=== PATIENT | male | born 1965 | race Caucasian/White ===

== ENCOUNTER 2017-05-15 17:56 | Inpatient (IN) | payer MEDICARE, OTHER ==
[~2017-05-15] VITALS: Ht 165.1 cm; Wt 69.7 kg
[~2017-05-15 17:56] MED LIST: GLYB5 PO; HYDR25TA PO; METO50 PO; NIFE10 PO
[2017-05-15] MEDS ORDERED: ALBUTEROL SULFATE 2.5 MG/0.5 ML NEB SOLUTION NEB ONE ×2 (18:10→19:20)
[2017-05-15] MEDS ORDERED: ACETAMINOPHEN 325 MG TABLET PO ONE (18:15)
[2017-05-15 18:29] LABS: BASOPHILS % (AUTO) 0.8 % (0.0-2.0); EOSINOPHILS % (AUTO) 3.6 % (1.0-6.0); HEMATOCRIT 34.2 % (41-53); HEMOGLOBIN 11.4 g/dL (13.5-17.5); LYMPHOCYTES # (AUTO) 0.7 K/uL (1.0-4.8); LYMPHOCYTES % (AUTO) 8.4 % (22.0-44.0); MEAN CORPUSCULAR HEMOGLOBIN 32.7 pg (26.0-34.0); MEAN CORPUSCULAR HGB CONC 33.3 G/dL (31.0-37.0); MEAN CORPUSCULAR VOLUME 98 fL (80-100); MONOCYTES # (AUTO) 0.2 K/uL (0.1-1.0); MONOCYTES % (AUTO) 2.7 % (2.0-9.0); NEUTROPHILS % (AUTO) 84.5 % (40.0-70.0); RED BLOOD CELL COUNT(AUTO) 3.48 MIL/uL (4.50-5.90); RED CELL DISTRIBUTION WIDTH 21.3 % (11.5-14.5)
[2017-05-15 18:36] LABS: INR 1.1 (0.9-1.1); PROTHROMBIN TIME 11.3 SEC (9.4-11.6)
[2017-05-15] MEDS ORDERED: CloNIDine HCL 0.2 MG TABLET PO ONE (18:45)
[2017-05-15 18:57] LABS: B-TYPE NATRIURETIC PEPTIDE > 5000 pg/mL (0-100)
[2017-05-15 19:01] LABS: SODIUM SERUM 136 mmol/L (136-145)
[2017-05-15 19:02] LABS: ANION GAP 21 mmol/L (8-16); CARBON DIOXIDE 19 mmol/L (22-29); CHLORIDE 96 mmol/L (98-107); GLUCOSE,RANDOM 122 mg/dL (70-110)
[2017-05-15 19:03] LABS: ALANINE AMINOTRANSFERASE 620 U/L (12-78); ALKALINE PHOSPHATASE 168 U/L (46-116); ASPARTATE AMINOTRANSFERASE 106 U/L (15-37); BILIRUBIN,TOTAL 1.7 mg/dL (0.1-1.0); CALCIUM, TOTAL 7.8 mg/dL (8.8-10.5); CREATINE KINASE, TOTAL 531 U/L (39-308); CREATININE 16.82 mg/dL (0.60-1.30); GLOMERULAR FILTR. RATE CALC 3 mL/min (>60); UREA NITROGEN, BLOOD 107 mg/dL (7-18)
[2017-05-15 19:05] LABS: ALBUMIN 3.4 g/dL (3.4-5.0); TOTAL PROTEIN, SERUM 7.7 g/dL (6.4-8.2)
[2017-05-15 19:12] LABS: CKMB RELATIVE INDEX 2.1 % (0.0-4.0); CREATINE KINASE MB 11.2 ng/mL (0-5)
[2017-05-15] MEDS ORDERED: CALCIUM GLUCONATE 100 MG/ML 10 ML IVP ONE (19:15)
[2017-05-15 19:28] LABS: PLATELET COUNT (AUTO) 71 K/uL (150-450)
[2017-05-15] MEDS ORDERED: SODIUM POLYSTYRENE SULFONATE 15 GM/60 ML SUSPENSION BOTTLE PO ONE (19:30)
[2017-05-15] MEDS ORDERED: 0.9% SODIUM CHLORIDE 5 ML NEB SOLUTION NEB ONE ×2 (19:33→19:34)
[2017-05-15 19:53] LABS: INFLUENZA TYPE A NEGATIVE FOR TYPE A (NEGATIVE); INFLUENZA TYPE B NEGATIVE FOR TYPE B (NEGATIVE)
[2017-05-15] MEDS ORDERED: OSELTAMIVIR PHOSPHATE 75 MG CAPSULE PO ONE (20:00)
[2017-05-15 20:06] LABS: ABG A-A DIFF O2 190.4 mmHg (10-20.0); ABG BASE EXCESS -9.4 mmol/L (-2.0-3.0); ABG CARBOXYHEMOGLOBIN 2.3 % (0.0-1.5); ABG HCO3 17.7 mmol/L (22.0-26.0); ABG METHEMOGLOBIN 0.3 % (0.0-1.5); ABG OXYGEN CONTENT 13.7 mL/dL (15.0-23.0); ABG OXYGEN SATURATION 88.8 % (95.0-98.0); ABG OXYHEMOGLOBIN 86.5 % (94.0-100.0); ABG PCO2 29 mmHg (35-45); ABG PH 7.364 (7.35-7.450); ABG TOTAL HEMOGLOBIN 11.2 G/dL (12.0-18.0); PO2, ARTERIAL BG 61.9 mmHg (84.0-92.0); SOURCE, BLOOD GAS ARTERIAL; TEMPERATURE, FAHRENHEIT, BG 98.6 FAHREN (96.0-98.6)
[2017-05-15 20:07] LABS: O2 DEVICE,BLOOD GAS AEROSOL MASK (ROOM AIR); SITE, BLOOD GAS LFT RADIAL
[2017-05-15] MEDS ORDERED: LEVOFLOXACIN 500 MG/D5% WATER 100 ML IV ONE (20:15)
[2017-05-15] MEDS ORDERED: ONDANSETRON HCL 4 MG/2 ML VIAL IVP PRN (20:30)
[2017-05-15] MEDS ORDERED: 0.9% SODIUM CHLORIDE 10 ML SYRINGE IVP PRN (20:30)
[2017-05-15] MEDS ORDERED: ACETAMINOPHEN 325 MG TABLET PO PRN (20:30)
[2017-05-15 21:59] VITALS: BP 160/109
[2017-05-15] MEDS ORDERED: ALBUTEROL SULFATE 2.5 MG/0.5 ML NEB SOLUTION NEB PRN (22:30)
[2017-05-15] MEDS ORDERED: VANCOMYCIN HCL 1 GM/D5% WATER 200 ML IV SCH (22:30)
[2017-05-15] MEDS ORDERED: *CLINICAL-CEFEPIME DOSING CLINICAL ONE (22:30)
[2017-05-15] MEDS ORDERED: CEFEPIME HCL 1 GM in DEXTROSE 5%-WATER 50 ML IV SCH (22:30)
[2017-05-15] MEDS ORDERED: IPRATROPIUM BROMIDE 0.5 MG/2.5 ML NEB SOLUTION NEB PRN (22:30)
[2017-05-15] MEDS ORDERED: VANCOMYCIN HCL 1 GM/D5% WATER 200 ML IV PRN (23:00)
[2017-05-15 23:29] LABS: C-REACTIVE PROTEIN QUANT 0.89 mg/dL (0.00-0.30)
[2017-05-15] MEDS ORDERED: VANCOMYCIN HCL 1.5 GM in DEXTROSE 5%-WATER 250 ML IV ONE (23:30)
[2017-05-15 23:46] LABS: ERYTHROCYTE SEDIMENTATION RATE 43 MM/HR (0-15)
[2017-05-16] VITALS (7 sets, daily range): BP systolic 104–157; BP diastolic 60–95
[2017-05-16] MEDS ORDERED: CEFEPIME HCL 1 GM in DEXTROSE 5%-WATER 50 ML IV ONE ×2
[2017-05-16] MEDS ORDERED: IPRATROPIUM BROMIDE 0.5 MG/2.5 ML NEB SOLUTION NEB SCH (02:00)
[2017-05-16] MEDS ORDERED: ALBUTEROL SULFATE 2.5 MG/0.5 ML NEB SOLUTION NEB SCH (02:00)
[2017-05-16 06:29] LABS: EOSINOPHILS % (AUTO) 0.1 % (1.0-6.0); HEMATOCRIT 28.8 % (41-53); HEMOGLOBIN 9.8 g/dL (13.5-17.5); LYMPHOCYTES # (AUTO) 0.7 K/uL (1.0-4.8); LYMPHOCYTES % (AUTO) 6.2 % (22.0-44.0); MEAN CORPUSCULAR HEMOGLOBIN 33.5 pg (26.0-34.0); MEAN CORPUSCULAR VOLUME 99 fL (80-100); MONOCYTES # (AUTO) 0.7 K/uL (0.1-1.0); MONOCYTES % (AUTO) 6.5 % (2.0-9.0); NEUTROPHILS # (AUTO) 10.1 K/uL (1.8-7.7); PLATELET COUNT (AUTO) 58 K/uL (150-450); RED BLOOD CELL COUNT(AUTO) 2.92 MIL/uL (4.50-5.90); RED CELL DISTRIBUTION WIDTH 20.5 % (11.5-14.5)
[2017-05-16 06:39] LABS: NEUTROPHILS % (AUTO) 87.2 % (40.0-70.0)
[2017-05-16 06:57] LABS: ALBUMIN 2.8 g/dL (3.4-5.0); BILIRUBIN,TOTAL 1.6 mg/dL (0.1-1.0); CALCIUM, TOTAL 7.2 mg/dL (8.8-10.5); CREATININE 17.51 mg/dL (0.60-1.30); TOTAL PROTEIN, SERUM 6.7 g/dL (6.4-8.2)
[2017-05-16] MEDS ORDERED: SODIUM CHLORIDE 0.9% 1,000 ML IV ONE ×2 (12:56)
[2017-05-16] MEDS: HEPARIN SODIUM,PORCINE 5,000 UNITS/ML VIAL SQ SCH ×2 (16:26→20:02)
[2017-05-16] MEDS: EPOETIN ALFA 10,000 UNITS/ML 2 ML VIAL SQ SCH (16:27)
[2017-05-16] MEDS: VITAMIN B COMP/VIT C/FOLIC ACID CAPSULE PO SCH (16:27)
[2017-05-16] MEDS: FAMOTIDINE 20 MG TABLET PO SCH (16:27)
[2017-05-16] MEDS: SODIUM POLYSTYRENE SULFONATE 15 GM/60 ML SUSPENSION BOTTLE PO SCH ×3 (16:28→20:05)
[2017-05-16] MEDS: CINACALCET HCL 30 MG TABLET PO SCH (18:49)
[2017-05-16] MEDS: ZOLPIDEM TARTRATE 5 MG TABLET PO PRN (21:27)
[2017-05-16] MEDS: CEFEPIME HCL 0.5 GM in DEXTROSE 5%-WATER 50 ML IV SCH (23:08)
[2017-05-16] MEDS ORDERED: SODIUM CHLORIDE 0.9% 500 ML IV ONE (23:09)
[2017-05-17] MEDS: VALSARTAN 160 MG TABLET PO SCH ×3 (01:09→21:15)
[2017-05-17 04:32] VITALS: BP 121/58
[2017-05-17] MEDS ORDERED: ACETAMINOPHEN 325 MG TABLET PO ONE (05:39)
[2017-05-17 07:25] VITALS: BP 106/55
[2017-05-17] MEDS: FAMOTIDINE 20 MG TABLET PO SCH (08:02)
[2017-05-17] MEDS: HEPARIN SODIUM,PORCINE 5,000 UNITS/ML VIAL SQ SCH ×2 (08:02→21:15)
[2017-05-17] MEDS: VITAMIN B COMP/VIT C/FOLIC ACID CAPSULE PO SCH (08:02)
[2017-05-17] MEDS: SODIUM POLYSTYRENE SULFONATE 15 GM/60 ML SUSPENSION BOTTLE PO SCH ×2 (08:03→21:00)
[2017-05-17 08:22] LABS: BILIRUBIN,TOTAL 2.5 mg/dL (0.1-1.0); CALCIUM, TOTAL 7.9 mg/dL (8.8-10.5); CREATININE 10.21 mg/dL (0.60-1.30); POTASSIUM 4.7 mmol/L (3.5-5.1); TOTAL PROTEIN, SERUM 7.8 g/dL (6.4-8.2)
[2017-05-17 10:51] VITALS: BP 152/71
[2017-05-17] MEDS ORDERED: LIDOCAINE HCL/PF 1% 2 ML VIAL INJ ONE (12:00)
[2017-05-17 15:51] VITALS: BP 127/64
[2017-05-17] MEDS: CINACALCET HCL 30 MG TABLET PO SCH (18:06)
[2017-05-17] MEDS: OXYGEN THERAPY IH SCH (20:00)
[2017-05-17 20:02] VITALS: BP 133/76
[2017-05-17] MEDS ORDERED: MetroNIDAZOLE 500 MG TABLET PO SCH (21:00)
[2017-05-17] MEDS: GABAPENTIN 300 MG CAPSULE PO SCH (21:15)
[2017-05-17] MEDS: ZOLPIDEM TARTRATE 5 MG TABLET PO PRN (21:15)
[2017-05-17] MEDS: MetroNIDAZOLE 500 MG/NACL 100 ML IV SCH (21:20)
[2017-05-17] MEDS: CEFEPIME HCL 0.5 GM in DEXTROSE 5%-WATER 50 ML IV SCH (22:52)
[2017-05-18 00:14] VITALS: BP 131/75
[2017-05-18] MEDS: MetroNIDAZOLE 500 MG/NACL 100 ML IV SCH ×3 (04:14→20:50)
[2017-05-18 05:23] VITALS: BP 159/86
[2017-05-18 06:25] LABS: BASOPHILS # (AUTO) 0.05 K/uL (0.00-0.20); BASOPHILS % (AUTO) 0.4 % (0.0-2.0); EOSINOPHILS % (AUTO) 2.71 % (1.0-6.0); HEMATOCRIT 27.5 % (41-53); LYMPHOCYTES # (AUTO) 1.1 K/uL (1.0-4.8); LYMPHOCYTES % (AUTO) 9.9 % (22.0-44.0); MEAN CORPUSCULAR HEMOGLOBIN 32.7 pg (26.0-34.0); MEAN CORPUSCULAR HGB CONC 32.7 G/dL (31.0-37.0); MEAN CORPUSCULAR VOLUME 100 fL (80-100); MONOCYTES # (AUTO) 0.9 K/uL (0.1-1.0); MONOCYTES % (AUTO) 8.5 % (2.0-9.0); NEUTROPHILS # (AUTO) 8.6 K/uL (1.8-7.7); NEUTROPHILS % (AUTO) 78.5 % (40.0-70.0); PLATELET COUNT (AUTO) 86 K/uL (150-450); RED BLOOD CELL COUNT(AUTO) 2.76 MIL/uL (4.50-5.90)
[2017-05-18 06:32] LABS: INR 1.1 (0.9-1.1); PROTHROMBIN TIME 11.2 SEC (9.4-11.6)
[2017-05-18 07:10] LABS: ALBUMIN 2.9 g/dL (3.4-5.0); BILIRUBIN,TOTAL 2.2 mg/dL (0.1-1.0); CALCIUM, TOTAL 7.5 mg/dL (8.8-10.5); CREATININE 9.76 mg/dL (0.60-1.30); PHOSPHORUS 6.1 mg/dL (2.5-4.9); POTASSIUM 4.5 mmol/L (3.5-5.1); TOTAL PROTEIN, SERUM 7.3 g/dL (6.4-8.2); VANCOMYCIN,RANDOM 8.2 mcg/mL (25.0-50.0)
[2017-05-18 07:14] LABS: BILIRUBIN,DIRECT 1.2 mg/dL (0.00-0.20)
[2017-05-18] MEDS ORDERED: VANCOMYCIN HCL 1.25 GM in DEXTROSE 5%-WATER 250 ML IV ONE (08:00)
[2017-05-18 08:33] VITALS: BP 165/91
[2017-05-18] MEDS: SODIUM POLYSTYRENE SULFONATE 15 GM/60 ML SUSPENSION BOTTLE PO SCH ×3 (09:00→20:55)
[2017-05-18] MEDS: OXYGEN THERAPY IH SCH ×2 (09:12→20:51)
[2017-05-18] MEDS ORDERED: MEBROFENIN TC99M/MCL ISOTOPE 1 EA INJ INJ ONE (10:50)
[2017-05-18 12:18] VITALS: BP 171/100
[2017-05-18] MEDS: VALSARTAN 160 MG TABLET PO SCH ×2 (13:49→20:50)
[2017-05-18] MEDS: FAMOTIDINE 20 MG TABLET PO SCH (13:49)
[2017-05-18] MEDS: VITAMIN B COMP/VIT C/FOLIC ACID CAPSULE PO SCH (13:49)
[2017-05-18] MEDS: EPOETIN ALFA 10,000 UNITS/ML 2 ML VIAL SQ SCH (13:51)
[2017-05-18] MEDS: HEPARIN SODIUM,PORCINE 5,000 UNITS/ML VIAL SQ SCH ×2 (13:52→20:50)
[2017-05-18 16:22] VITALS: BP 185/89
[2017-05-18] MEDS: CINACALCET HCL 30 MG TABLET PO SCH (18:00)
[2017-05-18 19:30] VITALS: BP 181/91
[2017-05-18] MEDS: GABAPENTIN 300 MG CAPSULE PO SCH (20:50)
[2017-05-18] MEDS: ZOLPIDEM TARTRATE 5 MG TABLET PO PRN (20:50)
[2017-05-18] MEDS: CEFEPIME HCL 0.5 GM in DEXTROSE 5%-WATER 50 ML IV SCH (23:29)
[2017-05-19 00:25] VITALS: BP 165/98
[2017-05-19] MEDS: MetroNIDAZOLE 500 MG/NACL 100 ML IV SCH ×3 (04:17→21:17)
[2017-05-19 04:41] VITALS: BP 156/77
[2017-05-19 07:12] LABS: BASOPHILS % (AUTO) 0.3 % (0.0-2.0); EOSINOPHILS % (AUTO) 2.7 % (1.0-6.0); HEMATOCRIT 27.1 % (41-53); HEMOGLOBIN 9.1 g/dL (13.5-17.5); LYMPHOCYTES % (AUTO) 9.6 % (22.0-44.0); MEAN CORPUSCULAR HGB CONC 33.6 G/dL (31.0-37.0); MEAN CORPUSCULAR VOLUME 98 fL (80-100); MONOCYTES # (AUTO) 0.9 K/uL (0.1-1.0); MONOCYTES % (AUTO) 9.2 % (2.0-9.0); NEUTROPHILS % (AUTO) 78.2 % (40.0-70.0); PLATELET COUNT (AUTO) 126 K/uL (150-450); RED BLOOD CELL COUNT(AUTO) 2.76 MIL/uL (4.50-5.90); RED CELL DISTRIBUTION WIDTH 18.6 % (11.5-14.5)
[2017-05-19] MEDS: OXYGEN THERAPY IH SCH ×2 (08:00→21:17)
[2017-05-19 08:08] LABS: ALBUMIN 2.6 g/dL (3.4-5.0); CALCIUM, TOTAL 7.7 mg/dL (8.8-10.5); CREATININE 12.05 mg/dL (0.60-1.30); POTASSIUM 4.4 mmol/L (3.5-5.1); TOTAL PROTEIN, SERUM 6.8 g/dL (6.4-8.2)
[2017-05-19 08:22] VITALS: BP 164/88
[2017-05-19] MEDS: SODIUM POLYSTYRENE SULFONATE 15 GM/60 ML SUSPENSION BOTTLE PO SCH ×2 (09:00→21:00)
[2017-05-19] MEDS: VITAMIN B COMP/VIT C/FOLIC ACID CAPSULE PO SCH (09:00)
[2017-05-19] MEDS: HEPARIN SODIUM,PORCINE 5,000 UNITS/ML VIAL SQ SCH ×2 (09:00→21:15)
[2017-05-19] MEDS: VALSARTAN 160 MG TABLET PO SCH ×3 (09:00→21:15)
[2017-05-19] MEDS: FAMOTIDINE 20 MG TABLET PO SCH ×2 (09:00→10:51)
[2017-05-19] MEDS ORDERED: SODIUM CHLORIDE 0.9% 2,000 ML IV ONE (12:15)
[2017-05-19 12:46] LABS: C.DIFF GDH ANTIGEN, Stool Negative (Negative); C.DIFF TOXINS A&B, Stool Negative (Negative)
[2017-05-19] MEDS ORDERED: SODIUM CHLORIDE 0.9% 1,000 ML IV ONE (13:43)
[2017-05-19] MEDS ORDERED: LIDOCAINE HCL/PF 1% 2 ML VIAL INJ ONE (16:48)
[2017-05-19] MEDS: CINACALCET HCL 30 MG TABLET PO SCH (18:00)
[2017-05-19] MEDS ORDERED: BUPIVACAINE HCL/PF 0.25% 30 ML VIAL ONE (18:13)
[2017-05-19] MEDS ORDERED: IOHEXOL 240 MG/ML 20 ML VIAL ONE ×2 (18:13)
[2017-05-19] MEDS ORDERED: RINGERS SOLUTION,LACTATED 1,000 ML IV ONE (18:13)
[2017-05-19] MEDS ORDERED: SODIUM CL IRRIG SOLN BAG 3,000 ML IRRIG ONE (18:13)
[2017-05-19] MEDS ORDERED: SODIUM CHLORIDE 0.9% 500 ML IV ONE (18:29)
[2017-05-19] MEDS ORDERED: FentaNYL CITRATE-PF 100 MCG/2 ML VIAL IVP PRN (18:30)
[2017-05-19] MEDS ORDERED: HYDROmorphone 2 MG/ML SYRINGE IVP PRN (18:30)
[2017-05-19] MEDS ORDERED: MEPERIDINE-PF 25 MG/ML SYRINGE IVP PRN (18:30)
[2017-05-19] MEDS ORDERED: CefoTEtan DISOD 2 GM/DEXTROSE 50 ML IV ONE (18:46)
[2017-05-19] MEDS ORDERED: HYDROCODONE/ACETAMINOPHEN 5-325 MG TABLET PO PRN (19:30)
[2017-05-19] MEDS ORDERED: MORPHINE SULFATE 2 MG/ML SYRINGE IVP PRN (19:30)
[2017-05-19] MEDS ORDERED: OXYGEN THERAPY IH SCH (20:00)
[2017-05-19 21:00] VITALS: BP 154/86
[2017-05-19 21:15] VITALS: BP 161/50
[2017-05-19] MEDS: GABAPENTIN 300 MG CAPSULE PO SCH (21:15)
[2017-05-19] MEDS ORDERED: EPHEDrine SULFATE 50 MG/ML VIAL IM ONE (22:42)
[2017-05-19] MEDS ORDERED: 0.9% SODIUM CHLORIDE 10 ML VIAL IVP ONE (22:42)
[2017-05-19] MEDS ORDERED: PROPOFOL 1% 20 ML VIAL IVP ONE (22:42)
[2017-05-19] MEDS ORDERED: LIDOCAINE HCL/PF 2% 5 ML VIAL IM ONE (22:42)
[2017-05-19] MEDS ORDERED: FentaNYL CITRATE-PF 100 MCG/2 ML VIAL IVP ONE (22:42)
[2017-05-19] MEDS ORDERED: SUCCINYLCHOLINE CHLORIDE 20 MG/ML 10 ML VIAL IVP ONE (22:42)
[2017-05-19] MEDS: CEFEPIME HCL 0.5 GM in DEXTROSE 5%-WATER 50 ML IV SCH (23:46)
[2017-05-20] VITALS (7 sets, daily range): BP systolic 110–167; BP diastolic 20–75
[2017-05-20] MEDS: MetroNIDAZOLE 500 MG/NACL 100 ML IV SCH ×3 (03:48→21:31)
[2017-05-20] MEDS: SODIUM POLYSTYRENE SULFONATE 15 GM/60 ML SUSPENSION BOTTLE PO SCH (09:00)
[2017-05-20 09:18] LABS: BASOPHILS % (AUTO) 0.5 % (0.0-2.0); HEMOGLOBIN 9.9 g/dL (13.5-17.5); LYMPHOCYTES # (AUTO) 0.8 K/uL (1.0-4.8); MEAN CORPUSCULAR HEMOGLOBIN 33.2 pg (26.0-34.0); MEAN CORPUSCULAR VOLUME 98 fL (80-100); MONOCYTES % (AUTO) 10.8 % (2.0-9.0); NEUTROPHILS # (AUTO) 7.1 K/uL (1.8-7.7); NEUTROPHILS % (AUTO) 76.7 % (40.0-70.0); PLATELET COUNT (AUTO) 148 K/uL (150-450); RED BLOOD CELL COUNT(AUTO) 2.97 MIL/uL (4.50-5.90); RED CELL DISTRIBUTION WIDTH 18.6 % (11.5-14.5)
[2017-05-20 09:26] LABS: ALBUMIN 2.5 g/dL (3.4-5.0); BILIRUBIN,TOTAL 1.7 mg/dL (0.1-1.0); CREATININE 9.73 mg/dL (0.60-1.30); MAGNESIUM 1.8 mg/dL (1.80-2.40); PHOSPHORUS 6.4 mg/dL (2.5-4.9); POTASSIUM 4.3 mmol/L (3.5-5.1); TOTAL PROTEIN, SERUM 6.9 g/dL (6.4-8.2); VANCOMYCIN,RANDOM 6.6 mcg/mL (25.0-50.0)
[2017-05-20] MEDS: FAMOTIDINE 20 MG TABLET PO SCH (09:35)
[2017-05-20] MEDS: HEPARIN SODIUM,PORCINE 5,000 UNITS/ML VIAL SQ SCH ×2 (09:35→20:16)
[2017-05-20] MEDS: VALSARTAN 160 MG TABLET PO SCH ×2 (09:35→20:15)
[2017-05-20] MEDS: VITAMIN B COMP/VIT C/FOLIC ACID CAPSULE PO SCH (09:35)
[2017-05-20] MEDS: ACETAMINOPHEN 325 MG TABLET PO PRN ×2 (09:36→20:16)
[2017-05-20] MEDS: OXYGEN THERAPY IH SCH ×2 (09:36→20:15)
[2017-05-20] MEDS: EPOETIN ALFA 10,000 UNITS/ML 2 ML VIAL SQ SCH (09:37)
[2017-05-20] MEDS ORDERED: VANCOMYCIN HCL 1.5 GM in DEXTROSE 5%-WATER 250 ML IV ONE (10:00)
[2017-05-20] MEDS ORDERED: SODIUM CHLORIDE 0.9% 1,000 ML IV ONE (17:00)
[2017-05-20] MEDS ORDERED: SODIUM CHLORIDE 0.9% 50 ML ONE (17:22)
[2017-05-20] MEDS: CINACALCET HCL 30 MG TABLET PO SCH (18:23)
[2017-05-20] MEDS: GABAPENTIN 300 MG CAPSULE PO SCH (20:15)
[2017-05-20] MEDS: CEFEPIME HCL 0.5 GM in DEXTROSE 5%-WATER 50 ML IV SCH (23:05)
[2017-05-21] MEDS: ZOLPIDEM TARTRATE 5 MG TABLET PO PRN ×2 (00:19→21:23)
[2017-05-21] MEDS: MetroNIDAZOLE 500 MG/NACL 100 ML IV SCH ×3 (05:52→21:23)
[2017-05-21] MEDS ORDERED: SODIUM CHLORIDE 0.9% 250 ML IV ONE (05:54)
[2017-05-21 06:51] VITALS: BP 155/56
[2017-05-21 07:38] VITALS: BP 146/75
[2017-05-21 09:29] LABS: VANCOMYCIN,RANDOM 26.4 mcg/mL (25.0-50.0)
[2017-05-21] MEDS: FAMOTIDINE 20 MG TABLET PO SCH (10:05)
[2017-05-21] MEDS: VALSARTAN 160 MG TABLET PO SCH ×2 (10:05→21:23)
[2017-05-21] MEDS: VITAMIN B COMP/VIT C/FOLIC ACID CAPSULE PO SCH (10:05)
[2017-05-21] MEDS: OXYGEN THERAPY IH SCH ×2 (10:05→20:00)
[2017-05-21] MEDS: HEPARIN SODIUM,PORCINE 5,000 UNITS/ML VIAL SQ SCH ×2 (10:06→21:23)
[2017-05-21 11:39] VITALS: BP 171/74
[2017-05-21] MEDS ORDERED: LIDOCAINE HCL/PF 1% 2 ML VIAL ID PRN (13:45)
[2017-05-21] MEDS ORDERED: DIPHENOXYLATE/ATROP 2.5-0.025 MG TABLET PO PRN (14:15)
[2017-05-21 15:27] VITALS: BP 160/92
[2017-05-21] MEDS ORDERED: LIDOCAINE HCL/PF 1% 2 ML VIAL IM ONE (17:09)
[2017-05-21 19:42] VITALS: BP 152/90
[2017-05-21] MEDS: GABAPENTIN 300 MG CAPSULE PO SCH (21:23)
[2017-05-21] MEDS: CEFEPIME HCL 0.5 GM in DEXTROSE 5%-WATER 50 ML IV SCH (22:57)
[2017-05-22 00:03] VITALS: BP 152/78
[2017-05-22] MEDS: MetroNIDAZOLE 500 MG/NACL 100 ML IV SCH ×2 (04:25→12:44)
[2017-05-22 04:53] VITALS: BP 156/75
[2017-05-22 07:26] VITALS: BP 155/76
[2017-05-22] MEDS: HEPARIN SODIUM,PORCINE 5,000 UNITS/ML VIAL SQ SCH (09:00)
[2017-05-22] MEDS: FAMOTIDINE 20 MG TABLET PO SCH (09:13)
[2017-05-22] MEDS: VALSARTAN 160 MG TABLET PO SCH (09:13)
[2017-05-22] MEDS: VITAMIN B COMP/VIT C/FOLIC ACID CAPSULE PO SCH (09:14)
[2017-05-22] MEDS: OXYGEN THERAPY IH SCH (09:14)
[2017-05-22 12:29] VITALS: BP 144/75
[2017-05-22] MEDS ORDERED: GABA-531 PO (15:21)
[2017-05-22] MEDS ORDERED: FAMO20 PO (15:21)
[2017-05-22] MEDS ORDERED: FOLI1CAP2 PO (15:22)
[2017-05-22] MEDS ORDERED: METR500 PO (15:22)
[2017-05-22] MEDS ORDERED: CINA30 PO (15:23)
[2017-05-22] MEDS ORDERED: VALS160T2 PO (15:25)
[2017-05-22] MEDS ORDERED: LEVO500 PO (15:26)
[2017-05-22 15:56] VITALS: BP 160/81
[2017-05-22] MEDS: CINACALCET HCL 30 MG TABLET PO SCH (18:09)
[2017-05-23] MEDS ORDERED: VANCOMYCIN HCL 1 GM/D5% WATER 200 ML IV ONE (06:00)
== END 2017-05-22 18:30 | disposition home or self-care (01) | DRG 853 ==
LOC: EMS 17:58 → 5S 20:20
PROVIDERS: ADMIT Hospitalist; ATTEND Hospitalist
PROC: 5A1D70Z Performance of Urinary Filtration, Intermittent, Less than 6 Hours Per Day (ICD-10-PCS; 2017-05-16)
PROC: 5A1D70Z Performance of Urinary Filtration, Intermittent, Less than 6 Hours Per Day (ICD-10-PCS; 2017-05-18)
PROC: BF101ZZ Fluoroscopy of Bile Ducts using Low Osmolar Contrast (ICD-10-PCS; 2017-05-19)
PROC: 5A1D70Z Performance of Urinary Filtration, Intermittent, Less than 6 Hours Per Day (ICD-10-PCS; 2017-05-19)
PROC: 0FT44ZZ Resection of Gallbladder, Percutaneous Endoscopic Approach (ICD-10-PCS; principal; 2017-05-19 18:00)
PROC: 5A1D70Z Performance of Urinary Filtration, Intermittent, Less than 6 Hours Per Day (ICD-10-PCS; 2017-05-20)
DX: A41.9 Sepsis, unspecified organism (principal); N18.6 End stage renal disease; J96.91 Respiratory failure, unspecified with hypoxia; I13.2 Hypertensive heart and chronic kidney disease with heart failure and with stage 5 chronic kidney disease, or end stage renal disease; K92.0 Hematemesis; E11.22 Type 2 diabetes mellitus with diabetic chronic kidney disease; D69.59 Other secondary thrombocytopenia; K80.00 Calculus of gallbladder with acute cholecystitis without obstruction; E11.51 Type 2 diabetes mellitus with diabetic peripheral angiopathy without gangrene; E87.1 Hypo-osmolality and hyponatremia; N25.81 Secondary hyperparathyroidism of renal origin; E87.5 Hyperkalemia; I48.91 Unspecified atrial fibrillation; D64.9 Anemia, unspecified; I25.10 Atherosclerotic heart disease of native coronary artery without angina pectoris; I50.9 Heart failure, unspecified; J11.1 Influenza due to unidentified influenza virus with other respiratory manifestations; K66.0 Peritoneal adhesions (postprocedural) (postinfection); Z79.4 Long term (current) use of insulin; Z99.2 Dependence on renal dialysis; Z91.15 Patient's noncompliance with renal dialysis; Z79.899 Other long term (current) drug therapy; Z82.71 Family history of polycystic kidney
CPT/HCPCS: 74181; 76700; 78226; 82247; 82248; 82805; 83605; 83735; 84100; 84145; 85651; 86140; 87040; 87070; 87081; 87147; 87205; 87324; 87340; 87449; 87804; 88304; 90935; 93005; 93306; 94640; 96365; 96375; 99291; A9537; J0330; J0610; J0692; J0885; J1644; J1956; J2704; J3010; J3370; J3490; J7030; J7040; J7050; J7060; J7120; Q9966